=== PATIENT | male | born 1975 | race Caucasian/White ===

== ENCOUNTER 2023-09-09 00:03 | Emergency (ER) | payer OTHER, SELFPAY ==
[2023-09-09 00:05] VITALS: BP 148/91; PULSE 87; RESP 16; O2SAT 96; BMI 27.1
--- NOTE | 2023-09-09 00:09 | XRR_ITS ---
PROCEDURE INFORMATION: Exam: XR Chest Exam date and time: 09/09/2023 12:22 AM Age: 48 years old Clinical indication: Angina; Additional info: Chest pain TECHNIQUE: Imaging protocol: Radiologic exam of the chest. Views: 1 view. COMPARISON: No relevant prior studies available. FINDINGS: Lungs: Calcified pulmonary granulomata are noted. No consolidation. Pleural spaces: No pleural effusion or pneumothorax. Heart/Mediastinum: Heart size is within normal limits. Calcified right hilar lymph nodes are noted. There may be calcified mediastinal lymph nodes. Bones/joints: No acute osseous abnormalities are seen. XR/XR chest 1V portable [id number] IMPRESSION: 1. No acute cardiopulmonary disease. 2. Old granulomatous disease.
--- NOTE | 2023-09-09 00:10 | ED_ITS ---
HPI - Chest Pain 2 General: Chief Complaint: Chest Pain Stated Complaint: CP Time Seen by Provider: 09/09/23 00:05 History of Present Illness: 48-year-old man who presents the emergen cy room by ambulance with chest pain and leg cramps. He says he got very hot today and could not get his temperature to come down. He started having some chest pressure. This started about 4 hours ago. Has since improved. He did receive nitro by ambulance. He has no known cardiac history. Does not smoke. No cough. No altered mental status. He has had some nausea but no vomiting. Review of Systems 2 Narrative: Constitutional symptoms: Negative except as documented in HPI. Skin symptoms: Negative except as documented in HPI. Eye symptoms: Negative except as documented in HPI. ENMT symptoms: Negative except as documented in HPI. Respiratory symptoms: Negative except as documented in HPI. Cardiovascular symptoms: Negative except as documented in HPI. Gastrointestinal symptoms: Negative except as documented in HPI. Genitourinary symptoms: Negative except as documented in HPI. Musculoskeletal symptoms: Negative except as documented in HPI. Neurologic symptoms: Negative except as documented in HPI. Psychiatric symptoms: Negative except as documented in HPI. Endocrine symptoms: Negative except as documented in HPI. Physical Exam 2 Narrative: EXAM NARRATIVE: General: Alert, no acute distress. Skin: Warm, dry. Head: Normocephalic, atraumatic. Neck: Supple, trachea midline. Eye: Extraocular movements are intact. Ears, nose, mouth and throat: Tacky oral mucosa Cardiovascular: Regular, Normal peripheral perfusion. Respiratory: Lungs are clear to auscultation, respirations are non-labored, breath sounds are equal, Symmetrical chest wall expansion. Gastrointestinal: Soft, Nontender, Non distended, Normal bowel sounds. Musculoskeletal: Normal ROM, no deformity. Neurological: Alert and oriented, No focal neurological deficit observed. Psychiatric: Cooperative, appropriate mood & affect. Course 2 Vital Signs: Vital signs: Vital Signs Pulse Rate 87 09/09/23 00:05 Respiratory Rate 16 09/09/23 00:05 Blood Pressure 148/91 09/09/23 00:05 Pulse Oximetry 96 09/09/23 00:05 Oxygen Delivery Me thod Room Air 09/09/23 00:05 MDM - Chest Pain Medical Decision Making Differential diagnosis for patient with chest pain includes but is not limited to and based on the above HPI, review of systems and physical exam: Pneumonia. unstable angina. angina. Acute coronary syndrome / [place]. Pulmonary embolism. Costochondritis / musculoskeletal. Pleurisy. Pericarditis. Esophageal spasm. Pancreatis. Cholecystitis. Workup: Lab work, chest X-ray and EKG ordered to evaluate, rule in and rule out above pathologies. Lab Review: Laboratory results were reviewed and interpreted by myself the emergency room physician. Patient is white count 11. Hemoglobin 14.5. BUN and creatinine are 21.1. Elevated BUN would indicate that he has some dehydration. Urine also has ketones which again would point towards heat exhaustion. Cardiac markers are negative at well over 2 hours since chest pain started. EKG shows no ischemic changes. Chest x-ray: No acute process. No infiltrate. No pneumothorax. No cardiomegaly. This was reviewed and interpreted by myself the ER physician. EKG: Time 0011. Rate 84. Normal sinus rhythm, No ST-T changes, no ectopy, normal [place] & QRS intervals, This was reviewed and interpreted by myself the ER physician at 0015 I reviewed the patient's medical record. Reexamination: Patient is much improved at this point. He had no increased work of breathing. He says he feels better. No altered mental status. No focal motor deficits. Assessment and plan: Heat exhaustion Dehydration Noncardiac chest pain ? Patient has received 2 L normal saline bolus and says he feels much better. Cardiac workup was negative. - Discharged home - Discussed plan with patient. Answered any questions. - Evaluation and treatment of this problem were appropriate in the emergency setting. Lab Data 09/09/23 00:13 09/09/23 00:13 Laboratory Results WBC 11.73 10^3/uL (3.29-11.43) H 09/09/23 00:13 RBC 4.99 10^6/uL (3.85-5.65) 09/09/23 00:13 Hgb 14.60 g/dL (11.27-16.99) 09/09/23 00:13 Hct 42.5 % (37-53) 09/09/23 00:13 MCV 85.2 fl (82-101) 09/09/23 00:13 MCH 29.3 pg (27-33) 09/09/23 00:13 MCHC 34.4 g/dL (30-55) 09/09/23 00:13 RDW 13.4 % (12.1-15.1) 09/09/23 00:13 Plt Count 233 10^3/cmm (157-399) 09/09/23 00:13 MPV 9.7 fL (7.4-10.4) 09/09/23 00:13 Neut % (Auto) 66.1 % 09/09/23 00:13 Lymph % (Auto) 23.4 % 09/09/23 00:13 [place] % (Auto) 9.1 % 09/09/23 00:13 Eos % (Auto) 0.6 % 09/09/23 00:13 Baso % (Auto) 0.5 % 09/09/23 00:13 Neut # (Auto) 7.76 10^3/uL (1.8-7.7) H 09/09/23 00:13 Lymph # (Auto) 2.7 10^3/uL (0.8-4.8) 09/09/23 00:13 [place] # (Auto) 1.1 10^3/uL (0.2-0.9) H 09/09/23 00:13 Eos # (Auto) 0.1 10^3/uL (0.0-0.8) 09/09/23 00:13 Baso # (Auto) 0.1 10^3/uL (0.0-0.1) 09/09/23 00:13 Nucleated RBC % (auto) 0 % 09/09/23 00:13 Nucleated RBCs # 0.0 /100WBC 09/09/23 00:13 Sodium 138 mmol/L (136-145) 09/09/23 00:13 Potassium 3.3 mmol/L (3.5-5.1) L 09/09/23 00:13 Chloride 100 mmol/L (98-107) 09/09/23 00:13 Carbon Dioxide 21 mmol/L (22-29) L 09/09/23 00:13 Anion Gap 20.3 (5-19) H 09/09/23 00:13 BUN 20 mg/dL (6-20) 09/09/23 00:13 Creatinine 1.1 mg/dL (0.7-1.2) 09/09/23 00:13 GFR Calculation 71.1 mL/min (90-130) L 09/09/23 00:13 Glucose 111 mg/dL (65-115) 09/09/23 00:13 Calculated Osmolality 289 mOsm/kg (285-295) 09/09/23 00:13 Calcium 8.6 mg/dL (8.5-10.5) 09/09/23 00:13 Magnesium 1.9 mg/dL (1.7-2.3) 09/09/23 00:13 Total Bilirubin 1.1 mg/dL (0.15-1.2) 09/09/23 00:13 AST 35 U/L (0-40) 09/09/23 00:13 ALT 35 U/L (0-41) 09/09/23 00:13 Alkaline Phosphatase 74 U/L (40-130) 09/09/23 00:13 Troponin T Baseline 9 ng/L (0-15) 09/09/23 00:13 C-Reactive Protein 3.0 mg/L (0.0-4.9) 09/09/23 00:13 Total Protein 7.0 g/dL (6.6-8.7) 09/09/23 00:13 Albumin 4.5 g/dL (3.5-5.2) 09/09/23 00:13 Globulin 2.5 g/dL (1.3-4.6) 09/09/23 00:13 Urine Color Yellow (Yellow) 09/09/23 00:17 Urine Appearance Clear (CLEAR) 09/09/23 00:17 Urine pH 6 (5-7) 09/09/23 00:17 Ur Specific [place] 1.015 (1.005-1.030) 09/09/23 00:17 Urine Protein Neg (Negative) 09/09/23 00:17 Urine Glucose (UA) Norm (Normal) 09/09/23 00:17 Urine Ketones 2+ (Negative) H 09/09/23 00:17 Urine Blood Neg (Negative) 09/09/23 00:17 Urine Nitrate Negative (Negative) 09/09/23 00:17 Urine Bilirubin Neg (Negative) 09/09/23 00:17 Urine Urobilinogen Neg mg/dL (Negative) 09/09/23 00:17 Ur Leukocyte Esterase Negative (Negative) 09/09/23 00:17 Urine RBC 0-4 /hpf (0-2) H 09/09/23 00:17 Urine WBC 0-4 /hpf (0-5) H 09/09/23 00:17 Ur Squamous Epith Cells 0-4 /hpf (0-5) H 09/09/23 00:17 Amorphous Sediment Not Reportable 09/09/23 00:17 Urine Bacteria Trace /hpf (NONE) 09/09/23 00:17 Urine Mucus Trace /hpf 09/09/23 00:17 All radiology interpretation(s) finalized by discharge Discharge Plan Discharge Patient Disposition: Home Clinical Impression: Dehydration Heat exhaustion Qualifiers: Encounter type: initial encounter Qualified Code(s): T67.5XXA - Heat exhaustion, unspecified, initial encounter Chest pain Qualifiers: Chest pain type: unspecified Qualified Code(s): R07.9 - Chest pain, unspecified Condition: Stable Discharge Orders: Discharge ED (Routine); Ordered 09/09/23 Ordered By: Gela Thao Discharge Diet: Usual diet Discharge Activity: Increase activity as tolerated Patient Instructions: Heat Exhaustion (ED), Noncardiac Chest Pain (ED) Activity Restrictions/Additional Instructions: Thank you for choosing [facility] for your healthcare needs today. Please realize this is an emergency room and that we are providing you with a medical screening exam and this may not be complete and all inclusive of all the testing and or work up that you may need to determine your ailment or severity of your illness. You have been screened and evaluated and felt safe for discharge. Health conditions do change or evolve sometimes and as such it is important that you follow up with your Primary Doctor to be re checked, 3-5 days is a general good time frame for follow up. You are always welcome to return to the ED for re assessment if your symptoms are worsening or you have new concerns Coding Level of Care Code ED [employer] for [employer]
--- NOTE | 2023-09-09 00:11 | ECG_ITS ---
[facility] Test Date: 2023-09-09 Pat Name: Nav Payan Department: Room: Gender: Male Credit Officer: : 1975 Requested By: Gela Echeverria Order Number: [id number] Helm MD: Shakir Chan M.D. Measurements Intervals [place] Rate: 84 P: 10 AR: 130 QRS: 31 QRSD: 94 T: 29 QT: 400 QTc: 475 Interpretive Statements SINUS RHYTHM POSSIBLE RIGHT VENTRICULAR CONDUCTION DELAY [RSR (QR) IN V1/V2] No previous ECG available for comparison Electronically Signed On 09-09-2023 7:24:43 CDT by Shakir Chan M.D. [id number]
[2023-09-09 00:27] LABS: Basophils # 0.1 10^3/uL (0.0-0.1); Basophils % 0.5 %; Eosinophils # 0.1 10^3/uL (0.0-0.8); Eosinophils % 0.6 %; Hematocrit 42.5 % (37-53); Lymphocytes # 2.7 10^3/uL (0.8-4.8); Lymphocytes % 23.4 %; Mean Corpuscular HGB Conc 34.4 g/dL (30-55); Mean Corpuscular Hemoglobin 29.3 pg (27-33); Mean Corpuscular Volume 85.2 fl (82-101); Mean Platelet Volume 9.7 fL (7.4-10.4); Monocytes # 1.1 10^3/uL (0.2-0.9); Monocytes % 9.1 %; Neutrophils # 7.76 10^3/uL (1.8-7.7); Neutrophils % 66.1 %; Nucleated Red Blood Cells % 0 %; Platelet Count 233 10^3/cmm (157-399); Red Blood Count 4.99 10^6/uL (3.85-5.65); Red Cell Distribution Width 13.4 % (12.1-15.1); White Blood Count 11.73 10^3/uL (3.29-11.43)
[2023-09-09 00:38] LABS: Add Urine Culture? No; Bacteria Urine TRACE /hpf; Bilirubin Urine Neg (Negative); Blood Urine Neg (Negative); Glucose Urine UA Norm (Normal); Ketones Urine 2+ (Negative); Leukocyte Esterase Urine Negative (Negative); Mucus Urine TRACE /hpf; Nitrate Urine Negative (Negative); Protein Urine Neg (Negative); RBC Urine 0-4 /hpf (0-2); Specific Gravity, Urine 1.015 (1.005-1.030); Squamous Epithelial Cell Urine 0-4 /hpf (0-5); Urine Appearance Clear (CLEAR); Urine Color Yellow (Yellow); Urobilinogen Urine Neg (Negative); WBC Urine 0-4 /hpf (0-5); pH Urine 6 (5-7)
[2023-09-09 00:49] LABS: Troponin(5th) Baseline 9 ng/L (0-15)
[2023-09-09 00:51] VITALS: BP 136/82; PULSE 84; RESP 15; RESP 16; O2SAT 97
[2023-09-09 00:51] LABS: Alanine Aminotransferase 35 U/L (0-41); Albumin Level 4.5 g/dL (3.5-5.2); Alkaline Phosphatase 74 U/L (40-130); Anion Gap 20.3 (5-19); Aspartate Amino Transferase 35 U/L (0-40); Blood Urea Nitrogen 20 mg/dL (6-20); Calcium 8.6 mg/dL (8.5-10.5); Carbon Dioxide 21 mmol/L (22-29); Chloride 100 mmol/L (98-107); Creatinine Clr Calc Pharmacy 95.1906; Globulin 2.5 g/dL (1.3-4.6); Glomerular Filtration Rate 71.1 mL/min (90-130); Glucose 111 mg/dL (65-115); Magnesium 1.9 mg/dL (1.7-2.3); Osmolality Calculated 289 mOsm/kg (285-295); Potassium 3.3 mmol/L (3.5-5.1); Sodium 138 mmol/L (136-145); Total Bilirubin 1.1 mg/dL (0.15-1.2)
[2023-09-09] MEDS: sodium chloride 0.9% 1,000 ML 999 ML IV (00:51)
[2023-09-09 01:00] VITALS: BP 139/81; PULSE 79; RESP 15; O2SAT 96
[2023-09-09 01:15] VITALS: BP 142/86; PULSE 75; RESP 16; RESP 18; O2SAT 99
[2023-09-09 01:17] LABS: Lactic Sepsis W/Reflex 0.9 mmol/L (0.5-2.2)
== END 2023-09-09 01:35 | disposition home or self-care (01) ==
PROVIDERS: Emergency Provider Emergency Medicine
DX: E86.0 Dehydration (principal); T67.5XXA Heat exhaustion, unspecified, initial encounter; X30.XXXA Exposure to excessive natural heat, initial encounter; R07.9 Chest pain, unspecified
CPT/HCPCS: 36415; 71045; 80053; 81001; 83605; 83735; 84484; 85025; 86140; 93005; 96360; 96361; 99285; J7030